=== PATIENT | female | born 1975 | race Caucasian/White ===

== ENCOUNTER 2017-04-17 16:50 | Emergency (ER) | payer OTHER ==
[~2017-04-17] VITALS: Wt 77.5 kg
[~2017-04-17 16:50] MED LIST: AMOX500C2 PO; GUAI-47 PO; IBUP-1542 PO; NO MEDS
[2017-04-17] MEDS ORDERED: ALBU18HF INHALATION (18:25)
[2017-04-17] MEDS ORDERED: FLUT9.9S NASAL (18:25)
[2017-04-17] MEDS ORDERED: SODI126M NASAL (18:25)
[2017-04-17] MEDS ORDERED: GUAI473L22 PO (18:25)
--- NOTE | 2017-04-17 18:36 | ERD ---
ER Documentation Chief Complaint Chief Complaint cough, sore throat, fever HPI 39-year-old female complaining of cough 1 month. Patient states that the cough is nonproductive, worse at night. She has a slight runny nose. Is also complaining of throat plane from cough. Denies fever or chills. Denies shortness of breath. Denies posttussive vomiting or other vomiting. ROS All systems reviewed and are negative except as per history of present illness. Medications Home Meds Active Scripts Sodium Chloride (Saline Nasal Mist) 126 Ml Mist, 2 SPRAY NASAL Q2H Y for NASAL CONGESTION, #1 BOTTLE Prov:ADIS COTTRELL NP 04/17/17 Fluticasone Propionate (Flonase Allergy Relief) 9.9 Ml [place].susp, 1 SPRAY NASAL DAILY, #1 BOTTLE TO EACH NOSTRIL Prov:ADIS COTTRELL NP 04/17/17 Guaifenesin-Codeine Phosphate* (Guaifenesin* AC Cough Syrup) 473 Ml Liquid, 5 ML PO Q4H Y for COUGH, #120 ML Prov:ADIS COTTRELL NP 04/17/17 Albuterol Sulfate* (Ventolin HFA*) 18 Gm Hfa.aer.ad, 2 PUFF INHALATION Q4H for COUGH, #1 INHALER Prov:ADIS COTTRELL NP 04/17/17 Ibuprofen* (Motrin*) 600 Mg Tab, 600 MG PO Q6, #20 TAB Prov:JUVENTINO BARRETT MD 03/13/15 Amoxicillin* (Amoxicillin*) 500 Mg Cap, 500 MG PO TID for 10 Days, CAP Prov:JUVENTINO BARRETT MD 03/13/15 Guaifenesin-Dextromethorphan* (Mucinex* DM) 600-30 Mg Tabsr, 1 TAB PO Q12, #20 TAB Prov:JUVENTINO BARRETT MD 03/13/15 Reported Medications [No Meds] No Conflict Check 02/20/10 Allergies Allergies: Coded Allergies: No Known Allergy (Verified , 01/12/13) PMhx/Soc Medical and Surgical Hx: pt denies Medical Hx, pt denies Surgical Hx History of Surgery: No Anesthesia Reaction: No Hx Neurological Disorder: No Hx Respiratory Disorders: No Hx Cardiac Disorders: No Hx Psychiatric Problems: No Hx Miscellaneous Medical Probl: No Hx Alcohol Use: No Hx Substance Use: No Hx Tobacco Use: No Physical Exam Vitals Vital Signs Date Time Temp Pulse Resp B/P Pulse Ox O2 Delivery O2 Flow Rate FiO2 04/17/17 17:27 98.4 83 20 108/60 97 Physical Exam General: Well-developed, well-nourished, conscious and coherent, in no distress Skin: Warm and dry without rash, good texture and turgor Head: Normocephalic without evidence of trauma Eyes: Sclera and conjunctivae normal; pupils equal, round, and reactive to light; extraocular movements are intact Nose/Face: The mucosa erythematous and swollen. Mouth/throat: Mucous membranes are moist. Posterior pharynx clear without erythema or exudates Neck: Supple without meningismus or adenopathy. Carotids are equal. Trachea midline. No bruits or JVD Chest: Normal AP diameter. Good expansion without retractions. Nontender. Lungs are clear to auscultate bilaterally with good tidal volume Heart: Regular rate and rhythm. No murmur, rub, or gallops heard Extremities: Full range of motion. Good strength bilaterally. No clubbing, cyanosis, or edema. Peripheral pulses are intact. Sensation intact Neuro: Alert and oriented 4, GCS 15. Cranial nerves grossly intact. Motor and sensory exams nonfocal. Moves all extremities. Speech clear. Gait normal Procedures/MDM Well-appearing 41-year-old female presented ED with cough 1 month. Patient is afebrile, in no respiratory distress. Lungs are clear to auscultate. I doubt that patient has pneumonia or bronchitis. I suspect her cough is postnasal drip either from allergic rhinitis, or from [id number] upper respiratory infection. Patient appears well, stable for discharge and outpatient management. Medical decision making shared with patient and family. Education provided to patient and family. Patient and family expressed understanding of the plan. Medications on discharge: Flonase, saline nasal spray, Ventolin, guaifenesin with codeine. Follow-up: Primary care provider in 2-3 days or return to ED if worse. Disclaimer: Inadvertent spelling and grammatical errors are likely due to EHR/ dictation software use and do not reflect on the overall quality of patient care. Also, please note that the electronic time recorded on this note does not necessarily reflect the actual time of the patient encounter. Departure Diagnosis: Primary Impression: Cough Condition: Stable Patient Instructions: Cough, Chronic, Uncertain Cause, (Adult) Referrals: OSBALDO DEVINE (PCP) Additional Instructions: Call your primary care doctor TOMORROW for an appointment during the next 2-3 days.See the doctor sooner or return here if your condition worsens before your appointment time. ADIS COTTRELL NP Apr 17, 2017 18:36
== END 2017-04-17 19:27 | disposition home or self-care (01) ==
LOC: FTE 16:50
DX: R05 Cough (principal)
CPT/HCPCS: 99283